=== PATIENT | male | born 1935 | race Caucasian/White ===

== ENCOUNTER 2017-12-27 11:27 | Outpatient (CLI) | payer MEDICARE, BC ==
[2017-12-27] VITALS (29 sets, daily range): BP systolic 65–166; BP diastolic 35–87
[~2017-12-27 11:27] MED LIST: ASPI81TA52 PO; COU5T PO; ECHI167T; ENOX100S3 SQ; ESOM40CA PO; FISH1CAP15 PO; FLUT60LO3 TP; GABA-338 PO; GLUC1CAP32 PO; LYSI500C4 PO; MONT10TA21 PO; MULT-1072 PO; [UNRECOGNIZED DRUG - CODE] IM
== END 2017-12-27 23:59 | disposition home or self-care (01) ==
LOC: CARD DIAG 11:27
PROVIDERS: ATTEND Internal Medicine Cardiovascular Disease
DX: R55 Syncope and collapse (principal); R42 Dizziness and giddiness
CPT/HCPCS: 93660

== ENCOUNTER 2024-07-10 05:58 | Day surgery (SDC) | payer MEDICARE, BC ==
[2024-07-09 09:37] LABS: BASOPHILS # (AUTO) 0.1 X10'3 (0-0.2); BASOPHILS % (AUTO) 0.9 % (0-1); EOSINOPHILS # (AUTO) 0.5 X10'3 (0-0.9); EOSINOPHILS % (AUTO) 7.9 % (0-6); HEMATOCRIT 35.2 % (42.0-52.0); HEMOGLOBIN 11.7 g/dl (14.0-17.9); LYMPHOCYTES % (AUTO) 17.8 % (21-51); MEAN CORPUSCULAR HEMOGLOBIN 30.8 PG (27.0-31.0); MEAN CORPUSCULAR HGB CONC 33.2 g/dL (33.0-36.5); MEAN CORPUSCULAR VOLUME 92.7 FL (78-98); MONOCYTES # (AUTO) 0.6 X10'3 (0-0.9); MONOCYTES % (AUTO) 10.4 % (2-12); NEUTROPHILS # (AUTO) 3.7 X10'3 (1.8-7.7); PLATELET COUNT 195 X10'3 (140-440); RED CELL DISTRIBUTION WIDTH 16.1 % (11.5-14.5); WHITE BLOOD COUNT 5.9 X10'3 (4.5-11.0)
[2024-07-09 09:43] LABS: ALBUMIN 3.4 G/DL (3.4-5.0); ANION GAP 6 (8-16); BLOOD UREA NITROGEN 19 MG/DL (7-18); BUN/CREATININE RATIO 18.4 (10.0-20.0); CALCIUM 8.9 MG/DL (8.5-10.1); CHLORIDE 106 MMOL/L (99-107); CREATININE 1.03 MG/DL (0.60-1.10); GLUCOSE 91 MG/DL (70-104); POTASSIUM 4.4 MMOL/L (3.5-5.1); SODIUM 142 MMOL/L (135-145); TOTAL CARBON DIOXIDE 30.5 MMOL/L (24-32); eGFR 68 ML/MIN
[2024-07-09 09:46] LABS: APTT 27 SECONDS (22-32); PROTHROMBIN TIME 10.8 SECONDS (9.0-12.0)
[~2024-07-10] VITALS: Ht 177.8 cm; Wt 73.9 kg
[2024-07-10] VITALS (12 sets, daily range): BP systolic 103–170; BP diastolic 38–67; PULSE 51–78; RESP 13–17; TEMP 97.7; O2SAT 95–97
[~2024-07-10 05:58] MED LIST changes: +ACET-2971 PO; -ASPI81TA52 PO; +ATOR10TA70 PO; +ATRNS BOTHNARES; +AZEL137S4 BOTHNARES; -COU5T PO; -ECHI167T; +ECHI167T PO; -ENOX100S3 SQ; +EPIN0.3A3; -ESOM40CA PO; +ESOM40CA66 PO; -FISH1CAP15 PO; +FLUT16SP8 BOTHNARES; -GABA-338 PO; +IMMU1VIA; +LACT1CAP55 PO; +LOSA50TA64 PO; +MONT-40 PO; -MONT10TA21 PO; +PYRI100L2; +RIVA20TA PO; +ZINC1POW; -[UNRECOGNIZED DRUG - CODE] IM
[2024-07-10] MEDS ORDERED: midazolam 1 mg/ML 2ml injection ONE (07:43)
[2024-07-10] MEDS ORDERED: LIDOcaine 1% w/EPI 1:100,000 inj. MDV 50 ML VIAL ONE (07:43)
[2024-07-10] MEDS ORDERED: fentaNYL/PF 50MCG/1 ML 2ML syringe ONE (07:44)
[2024-07-10] MEDS ORDERED: ceFAZolin 1000mg inj ONE (07:44)
[2024-07-10] MEDS ORDERED: hydrALAZINE 20mg/ml inj. ONE (08:42)
[2024-07-10] MEDS ORDERED: diphenhydrAMINE 50 mg/ml inj ONE (08:53)
[2024-07-10] MEDS ORDERED: HYDROcodone/acetaminophen 5mg/325mg tablet PO PRN (09:50)
[2024-07-10] MEDS ORDERED: HYDROcodone/acetaminophen 10/325mg tab PO PRN (09:50)
[2024-07-10] MEDS ORDERED: normal saline 1000ml 1,000 ML IV ONE (09:55)
[2024-07-10] MEDS: normal saline 1000ml 1,000 ML IV ONE (10:53)
[2024-07-10] MEDS: vancomycin/NS 1 GM ADD-VANTAGE 250 ML X 1 DOSE IV ONE (10:53)
[2024-07-10] MEDS ORDERED: CEPH-585 PO (11:37)
[2024-07-10] MEDS: cefazolin 2gm/D5W 100mL 100 ML IV ONE (14:00)
[2024-07-10] MEDS: acetaminophen 325mg tablet PO PRN (14:02)
== END 2024-07-10 15:00 | disposition home or self-care (01) ==
LOC: SSTAY O 05:58
PROVIDERS: ATTEND Internal Medicine Cardiovascular Disease
DX: I49.5 Sick sinus syndrome (principal); I49.1 Atrial premature depolarization; I25.10 Atherosclerotic heart disease of native coronary artery without angina pectoris; I10 Essential (primary) hypertension; E78.5 Hyperlipidemia, unspecified; I48.0 Paroxysmal atrial fibrillation; J44.9 Chronic obstructive pulmonary disease, unspecified; G47.30 Sleep apnea, unspecified; K21.9 Gastro-esophageal reflux disease without esophagitis; M19.90 Unspecified osteoarthritis, unspecified site; Z86.718 Personal history of other venous thrombosis and embolism; Z79.01 Long term (current) use of anticoagulants; Z79.899 Other long term (current) drug therapy; Z90.89 Acquired absence of other organs; Z98.41 Cataract extraction status, right eye; Z98.42 Cataract extraction status, left eye; Z98.52 Vasectomy status; Z98.890 Other specified postprocedural states; Z82.3 Family history of stroke; Z82.49 Family history of ischemic heart disease and other diseases of the circulatory system
CPT/HCPCS: 33208; 36415; 71046; 80048; 85025; 85610; 85730; 93005; 99152; 99153; A4565; A6402; C1785; J0360; J0690; J1200; J2250; J3010; J3370; J3490; J7030; Z7610; A6449; C1898

== ENCOUNTER 2025-03-18 12:48 | Outpatient (CLI) | payer MEDICARE, BC ==
[~2025-03-18 12:48] MED LIST changes: -ACET-2971 PO; -AZEL137S4 BOTHNARES; -ECHI167T PO; -EPIN0.3A3; -FLUT16SP8 BOTHNARES; -FLUT60LO3 TP; -GLUC1CAP32 PO; -LACT1CAP55 PO; -LYSI500C4 PO; -MONT-40 PO; -MULT-1072 PO; -PYRI100L2; -ZINC1POW
--- NOTE | 2025-03-18 15:41 | RADIOLOGY REPORT ---
MRI brain HISTORY: ABSENCE EPILEPTIC SYNDROME, NOT INTRACTABLE, W/O STAT EPI TECHNIQUE: MR was performed with a surface coil at 1.5 T magnet. Sagittal, axial and coronal T1 and T 2-weighted images were obtained. FINDINGS: No areas of restricted diffusion on diffusion-weighted images. No areas of abnormal T2 star signal hypointensity on gradient echo images. On FLAIR and T2 weighted images there is T2 signal hyperintensity in the periventricular white matter extending superiorly through the centrum semiovale into the evans radiata No hydrocephalus. No midline shift. Cortical sulcal markings are prominent. No extra-axial fluid collections. Orbits paranasal sinuses sella and cerebellopontine angles unremarkable in appearance. IMPRESSION: 1. No acute intracranial hemorrhage or ischemic infarction 2. 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 3. Focally pronounced area of cortical atrophy in the left posterior parietal region noted incidental ly.
== END 2025-03-18 23:59 | disposition home or self-care (01) ==
LOC: MRI 12:48
PROVIDERS: ATTEND Family Medicine
DX: G93.49 Other encephalopathy (principal); G40.A09 Absence epileptic syndrome, not intractable, without status epilepticus
CPT/HCPCS: 70551

== ENCOUNTER 2025-08-23 14:56 | Emergency (ER) | payer MEDICARE, BC ==
[~2025-08-23] VITALS: Ht 177.8 cm; Wt 70.3 kg
[2025-08-23 15:01] VITALS: TEMP 98.1
--- NOTE | 2025-08-23 15:13 | Physician Documentation ---
History of Present Illness ~ Chief Complaint: Cold, cough & congestion Stated Complaint: PNEUMONIA Time Seen by MD: 17:05 Primary Medical Doctor: Dr Nicolas HPI Patient is a very pleasant 89-year-old male that presents to the emergency department accompanied by his caregiver for evaluation of worsening of an aspiration induced pneumonia that he was diagnosed with on the 10 of August. Patient's caregiver reports that he underwent a 10 day course of antibiotics with mild improvement during the course of antibiotics. Patient was on 2 congruent antibiotics for approximately 2 weeks with the last antibiotic finishing on . Since that time has become short of breath increased productive cough denies fevers chills nausea vomiting diarrhea. Caregiver r jhonys increased lethargy and brought patient in because of complaints of chills. Due to having pneumonia last time they brought him in being cautious with his symptoms. Caregiver reports that he is unable to eat or drink foods due to aspiration risks. He has a feeding tube. She reports that the patient even has difficulty protecting his airway from his own oral secretions on o ccasion. Patient has a pacemaker in place. Patient denies chest pain chest pressure increased edema in his extremities or any other symptoms at this time. Medication Reconciliation Allergies: Coded Allergies: pregabalin (Verified Allergy, Unknown, 05/10/23) Scheduled Atorvastatin Calcium (Atorvastatin Calcium), 1 TAB PO DAILY, (Reported) Esomeprazole Magnesium (Esomeprazole Magnesium), 1 CAP PO BID, (Reported) Ipratropium Aguila Nasal [place]* (Atrovent Nasal [place] 0.06*), 2 SPRAYS BOTHNARES TID, (Reported) Losartan Potassium (Losartan Potassium), 1 TAB PO DAILY, (Reported) Rivaroxaban (Xarelto), 1 TAB PO DAILY, (Reported) Miscellaneous Medications Immune Globulin,Gamma(IgG)Klhw (Xembify), (Reported) Past Medical History Past Medical History: Atrial Fibrillation, Hypertension, COPD, Constipation, Arthritis, Extremity Fracture Past Surgical History: noncontributory Alcohol Use: Occasionally Drug Use: none Lives with: Spouse Lives In: Home Occupation: retired Review of Systems All Other Systems at this time: Reviewed and Negative Respiratory: Reports: see HPI Physical Exam Vital Signs: RN Vital Signs have been reviewed: Yes, Temperature: 98.1, Source: Oral, Heart Rate: 81, Respiratory Rate: 16, BP: 109/51, Pulse Oximetry: 96, Weight: 70.300 Oxygen Flow Rate: 0 Physical Exam General: Alert, no apparent distress. Chronically ill frail elderly gentleman HEENT: PERRL, EOMI, no injection, moist mucous membranes. Neck: Full range of motion. Respiratory: Lung sounds clear posteriorly and anteriorly although diminished air movement. No wheezes rales or rhonchi. Speaking in full sentences Chest: No accessory muscle use. Cardiovascular: Regular rate and rhythm, no murmurs. Extremities: Normal range of motion, no deformity. Neurologic: Oriented x4. Psychiatric: Normal mood and affect. Skin: Normal color, warm and dry. No edema, no ecchymosis. Progress Results/Orders Results/Orders Orders - KALINA LARIOS NP Cult Mrsa Screen (08/23/25 17:05) Vital Signs 08/23/25 08/23/25 08/23/25 15:01 16:36 16:47 Temp 98.1 Pulse 81 71 Resp 16 16 16 B/P (MAP) 109/51 108/43 (64) Pulse Ox 96 100 O2 Flow Rate 0 0 Laboratory Tests Test 08/23/25 15:22 08/23/25 17:06 White Blood Count 4.2 L Red Blood Count 4.13 L Hemoglobin 12.3 L Hematocrit 37.7 L Mean Corpuscular Volume 91.4 Mean Corpuscular Hemoglobin 29.7 Mean Corpuscular Hemoglobin Concent 32.5 L Red Cell Distribution Width 18.2 H Platelet Count 188 Mean Platelet Volume 11.4 H Neutrophils (%) (Auto) 72.7 Lymphocytes (%) (Auto) 16.8 L Monocytes (%) (Auto) 8.5 Eosinophils (%) (Auto) 1.6 Basophils (%) (Auto) 0.4 Neutrophils # (Auto) 3.1 Lymphocytes # (Auto) 0.7 L Monocytes # (Auto) 0.4 Eosinophils # (Auto) 0.1 Basophils # (Auto) 0.0 CBC Comment Platelet Estimate Normal Large Platelets Few Red Blood Cell Morphology Perf Basophilic Stippling Anisocytosis 2+ Sodium Level 146 H Potassium Level 4.6 Chloride Level 109 H Carbon Dioxide Level 32.5 H Anion Gap 5 L Blood Urea Nitrogen 46 H Creatinine 1.10 Estimated GFR/1.73 m2 63 BUN/Creatinine Ratio 41.8 H Glucose Level 114 H Calcium Level 8.7 Troponin I High Sensitivity 13 Pro-B-Type Natriuretic Peptide 383 Albumin 3.1 L Chemistry Comments EKG/XRAY/CT/US/VASC/MRI EKG : Additional Comment EKG indicates sinus rhythm at [address]-T abnormalities paced Heart Score: Heart Score Response (Comments) Value History Slightly Suspicious 0 EKG Normal 0 Age >65 2 Risk Factors 1 or 2 risk factors 1 Troponin Normal limit 0 Total 3 Medical Decision Making Additional information obtaine: old records Findings Patient is concerned which brought him in was after recent antibiotic completion for aspiration pneumonia he was feeling chilled today. As well as some increased fatigue per caregiver. X-ray was unremarkable except for some linear atelectasis but no infiltrates noted. Patient has history of aspiration pneumonia and has a feeding tube as he has a difficulty clearing own secretions. Patient and family members well as caregiver at bedside would like to be discharged if possible mainly here due to concern for continued pneumonia. No chest pain or shortness of breath. Vital signs reassuring labs unremarkable for significant infection. 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 Differential Dx:Considerations: Include: Pneumonia, Pnuemonitis, URI, Other Departure Time of Disposition: 17:34 Disposition: 01 HOME / SELF CARE / HOMELESS Impression: Primary Impression: Cough Additional Impression: History of pneumonia Condition: Stable Discharge Instructions: Cough, Adult Additional Instructions: Continue to closely monitor for new or worsening symptoms. At this time as we discussed there was no signs of infection just atelectasis or closing of the airways were deep breathing can be beneficial. Follow up with primary care and feel free to return to the ER for any new or worsening symptoms. Referrals: NO PRIMARY CARE PROVIDER (PCP) Education Educated: Patient Educated regarding: diagnosis, treatment, need for follow up Signature Scribe Signature: No scribe Attestation: The note accurately reflects work and decisions made by me.Kalina Larios - GUIDE DOG INSTRUCTOR 08/23/25 17:36 BROCK BUTLERP Aug 23, 2025 15:13 KALINA LARIOS [employer] Aug 23, 2025 17:31
--- NOTE | 2025-08-23 15:14 | ELECTROCARDIOGRAPH REPORT ---
[facility] Test Date: 2025-08-23 Test Time: 15:12:49 Pat Name: DENAE BEAVER Department: [facility]-ER Patient ID: [id number] Room: Gender: M Electrotype Caster: : [id number] Requested By: GINNY MANZO Order Number: [id number] Reading MD: Dr. GENIA Becker Measurements Intervals Wright Rate: 88 P: 47 GA: 167 QRS: 37 QRSD: 90 T: 64 QT: 365 QTc: 442 Interpretive Statements Sinus rhythm Electronically Signed On 08-24-2025 12:57:[address] GENIA Becker Please click the below link to view image of tracing.
--- NOTE | 2025-08-23 15:30 | RADIOLOGY REPORT ---
CHEST RADIOGRAPH Indication: CP Technique: Single frontal view of the chest was obtained Comparison: DI CHEST,SINGLE VIEW on DOS: 12/16/24, CHEST 1 VIEW on DOS: 12/16/24, DI CHEST,SINGLE VIEW on DOS: 05/10/23 FINDINGS: Lines and Tubes: None Lungs: No focal consolidation. Elevated right hemidiaphragm with right mid and lower lung zone linear densities. Pleura: No effusion. No pneumothorax. Cardiomediastinal contours: Unremarkable. Left-sided approach dual lead pacemaker terminating within right atrium and right ventricle. Bones: No acute osseous abnormality. IMPRESSION: Right mid and lower lung zone linear atelectasis/scarring. Otherwise, no evidence for acute cardiopulmonary disease.
[2025-08-23 15:58] LABS: MEAN PLATELET VOLUME 11.4 FL (7.4-10.4); RED CELL DISTRIBUTION WIDTH 18.2 % (11.5-14.5)
[2025-08-23 16:15] LABS: CREATININE 1.10 MG/DL (0.60-1.10); PRO BRAIN NATRIURETIC PEPTIDE 383 PG/ML (0-450); TOTAL CARBON DIOXIDE 32.5 MMOL/L (24-32); eCRCL 46 ML/MIN; eGFR 63 ML/MIN
[2025-08-23 16:22] LABS: LARGE PLATELETS FEW; PLATELET ESTIMATE NORMAL
[2025-08-23 17:35] LABS: INFLUENZA TYPE A ANTIGEN RAPID NEGATIVE (Negative); INFLUENZA TYPE B ANTIGEN RAPID NEGATIVE (Negative)
[2025-08-23 17:48] VITALS: BP 117/49; PULSE 67; RESP 16; O2SAT 97
== END 2025-08-23 17:54 | disposition home or self-care (01) ==
LOC: ER 14:57
DX: R05.9 Cough, unspecified (principal); R06.02 Shortness of breath; J44.9 Chronic obstructive pulmonary disease, unspecified; I48.91 Unspecified atrial fibrillation; I10 Essential (primary) hypertension; M19.90 Unspecified osteoarthritis, unspecified site; Z95.0 Presence of cardiac pacemaker; Z88.8 Allergy status to other drugs, medicaments and biological substances; Z79.899 Other long term (current) drug therapy; Z72.89 Other problems related to lifestyle; Z20.822 Contact with and (suspected) exposure to COVID-19
CPT/HCPCS: 36415; 71045; 80048; 83880; 84484; 85008; 85025; 87081; 87804; 87811; 93005; 99285